=== PATIENT | male | born 1945 | race Caucasian/White ===

== ENCOUNTER 2017-09-11 17:44 | Emergency (ER) | payer MEDICARE, OTHER ==
--- NOTE | 2017-09-11 19:00 | RAD ---
RIGHT HAND THREE VIEWS: History: Right hand pain. FINDINGS/IMPRESSION: No acute fracture, dislocation, or bony destruction is seen. Mild degenerative changes are present. POS: [facility]
== END 2017-09-11 19:03 | disposition home or self-care (01) ==
LOC: ERS 17:44
DX: S63.91XA Sprain of unspecified part of right wrist and hand, initial encounter (principal); X50.1XXA Overexertion from prolonged static or awkward postures, initial encounter